=== PATIENT | female | born 1955 | race Two or more races ===

== ENCOUNTER 2024-06-21 10:15 | Day surgery (SDC) | payer MEDICARE, SELFPAY ==
--- NOTE | 2024-06-17 07:00 | EKG_ITS ---
[facility] Test Date: 2024-06-17 Pat Name: RACHAEL TOBIN Department: Room: - Gender: Female [employer] Relationship [employer]: PENG : 1955 Requested By: Avi Dunbar Order Number: [id number] Reading MD: Avi Dunbar Measurements Intervals [place] Rate: 59 P: -6 KS: 183 QRS: -28 QRSD: 118 T: -3 QT: 447 QTc: 445 Interpretive Statements SINUS BRADYCARDIA INCOMPLETE RIGHT BUNDLE BRANCH BLOCK SEPTAL MYOCARDIAL INFARCTION , PROBABLY OLD Compared to ECG 03/26/2019 14:01:21 Incomplete right bundle-branch block now present Myocardial infarct finding now present T-wave abnormality no longer present /store/S0/[id number].pdf
[2024-06-17 09:26] VITALS: BMI 27.4
[2024-06-17 10:00] LABS: Collection Type, Urine Clean Catch
[2024-06-17 10:54] LABS: Basophils # (Auto) 0.1 Thou/mm3 (0.0-0.2); Basophils % (Auto) 1 % (0-2.5); Eosinophils # (Auto) 0.2 Thou/mm3 (0.0-0.5); Eosinophils % (Auto) 3 % (0-10); Hematocrit 37.8 % (36.0-46.0); Hemoglobin 12.8 g/dL (12.0-16.0); Immature Granulocytes % (Auto) 0 % (0-0); Immature Granulocytes Auto 0.01 Thou/mm3 (0.00-0.00); Lymphocytes # (Auto) 2.1 Thou/mm3 (1.0-4.8); Lymphocytes % (Auto) 36 % (10-50); Mean Corpuscular HGB Conc 33.9 g/dl (31.0-37.0); Mean Corpuscular Volume 92 fL (80-100); Monocytes # (Auto) 0.4 Thou/mm3 (0.0-0.8); Monocytes % (Auto) 7 % (0-12); Neutrophils % (Auto) 53 % (37-80); Nucleated Red Blood Cell % 0 /100 WBC (0); Platelet Count 194 Thou/mm3 (140-440); Red Blood Count 4.13 Miln/mm3 (4.00-5.20); White Blood Count 5.7 Thou/mm3 (3.6-11.0)
[2024-06-17 10:56] LABS: Bacteria,Urine 4+; Bilirubin,Urine Negative (Negative); Blood,Urine Negative (Negative); Clarity,Urine Clear (Clear/Hazy); Color,Urine Lt-Yellow (Lt Yel-Yel); Glucose, Urine Negative (Negative); Ketones,Urine Negative (Negative); Leukocyte Esterase,Urine Positive (Negative); Nitrite,Urine Negative (Negative); PH,Urine 6.5 (5.0-7.0); Protein,Urine Negative (Neg - Trace); RBC,Urine 2 /hpf (0-3); Specific Gravity,Urine 1.008 (1.001-1.035); Squamous Epithelial Cell,Urine < 1 /hpf (0-5); Urobilinogen,Urine Negative mg/dL (0.0-1.0); WBC,Urine 19 /hpf (0-5)
[2024-06-17 11:03] LABS: Alanine Aminotransferase 13 U/L (10-49); Albumin, Serum 4.1 gm/dL (3.4-4.8); Albumin/Globulin Ratio 1.5 (1.2-2.2); Alkaline Phosphatase 56 U/L (46-116); Anion Gap 7 (7-16); Aspartate Amino Transferase 21 U/L (0-34); BUN/Creatinine Ratio 17 Ratio (12-20); Bilirubin,Total 1.5 mg/dL (0.3-1.2); Blood Urea Nitrogen 17 mg/dL (9-23); Calcium 9.7 mg/dL (8.3-10.6); Calcium (Corrected) 9.7 mg/dL (8.5-10.1); Chloride 108 mMol/L (98-107); Estimated Creatinine Clearance 50.4 mL/min (>60); Globulin 2.7 gm/dL (2.3-3.5); Glucose 94 mg/dL (74-106); Osmolality,Calculated 284 (275-295); Potassium 3.9 mMol/L (3.4-5.1); Sodium 142 mMol/L (136-145); Total Protein 6.8 gm/dL (5.7-8.2); eGFR > 60 See Note
--- NOTE | 2024-06-20 13:02 | ESHP_ITS ---
RE: RACHAEL TOBIN : 1955 DATE OF ADMISSION: 06/21/2024 HISTORY OF PRESENT ILLNESS: The patient is an elderly female with a history of leaky bladder. She urinates every time she sneezes, cough, laughs, and the urine comes out. She has nocturia 3 to 4 times. No urinary burning. No history of gross hematuria. PAST SURGICAL HISTORY: Included hernia operation, breast cyst surgery, cholecystectomy, and right shoulder operation. SOCIAL HISTORY: She has 4 children. ALLERGIES: NONE KNOWN. PAST MEDICAL HISTORY: She has history of hypertension and history of diabetes. She does not take any medication for diabetes. She takes some medicine for high blood pressure. PHYSICAL EXAMINATION: HEENT: Normal. NECK: Supple. LUNGS: Clear. CARDIOVASCULAR: Heart sounds are normal. ABDOMEN: Soft without any organomegaly. No guarding. No rigidity. EXTREMITIES: Normal. GENITOURINARY: Pelvic examination revealed grade 1 to 2 urethrocele. LABORATORY DATA: Cystoscopy was done, which revealed some cystitis cystica, gross urinary incontinence, positive Naldo test, low residual urine, normal capacity bladder, no uninhibited bladder contractions. PLAN: The patient was given Gemtesa 75 mg every day. The patient was given treatment options. She has decided to have surgery for her gross urinary stress incontinence. She is now scheduled to have cystoscopy, bladder neck suspension, urethrolysis with Lynx vaginal sling procedure. Planned procedure risks and complications have been discussed with the patient. The patient has understood them and agreed to proceed. DT: 12:32:20 TT: 13:01:00 Ref: [id number] - TID: [id number]
[2024-06-21] VITALS (18 sets, daily range): BP systolic 102–163; BP diastolic 54–80; PULSE 50–76; RESP 14–20; TEMP 36.2–36.4; O2SAT 95–100; BMI 27.3; BMI 28.3
--- NOTE | 2024-06-21 10:51 | CHAP ---
Patient expressed gratitude for prayer before their procedure.
[2024-06-21] MEDS: RINGERS LACTATED 1000 ML 1,000 ML 20 ML IV (11:08)
--- NOTE | 2024-06-21 13:05 | SUR.PHASEI ---
pt received from OR in recovery bay 2. pt obtunded, breathing unlabored on oxymask 6l, oral airway in place. v/s stable. pt dressing to vagina/pubis area cdi. report received from Sonu WONG and Álvaro MENSAH.
[2024-06-21] MEDS: RINGERS LACTATED 1000 ML 1,000 ML 100 ML IV (15:10)
--- NOTE | 2024-06-21 20:29 | ESOP_ITS ---
RE: RACHAEL TOBIN : 1955 DATE OF OPERATION: 06/21/2024 PREOPERATIVE DIAGNOSIS: Gross urinary stress incontinence. POSTOPERATIVE DIAGNOSIS: Gross urinary stress incontinence. PROCEDURES PERFORMED: Bladder neck suspension, cystoscopy, and urethrolysis with Lynx vaginal sling procedure. ANESTHESIA: General. INDICATION: The patient is a 69-year-old female, who was referred to me with history of gross urinary stress incontinence. She loses urine on any kind of stress, sneezing, coughing or laughing. She was seen in the office. Cystoscopy was done, which revealed low residual urine, normal capacity bladder, no intravesical stones or tumors, gross urinary stress incontinence, positive Naldo's test, no uninhibited bladder contractions. The patient was given treatment options. She has decided to have surgery. She is now scheduled to have bladder neck suspension, cystoscopy, urethrolysis with Lynx vaginal sling procedure. Planned procedure, risks and complications have been discussed with the patient. The patient has understood them and agreed to proceed. DESCRIPTION OF PROCEDURE: After the patient was brought to the operating table under adequate general anesthesia in dorsal lithotomy position, parts were prepped and draped in the usual fashion. Abbott catheter was inserted into the bladder. Anterior vaginal wall submucosal injection was then carried out with local anesthetic. Vertical small incision was made about 0.5 cm long between mid urethra towards the bladder neck. Dissection was then carried out on either side underneath the vaginal mucosa for about 2 inches. Dissection was then carried out. Deep endopelvic fascia was entered and urethrolysis was carried out on both sides. Retropubic space was identified. At this point, in the suprapubic area, 2 transverse incisions were made about 3 inches from midline and the Lynx needles were passed from the suprapubic wound into the vaginal wound under finger control behind the pubic bone on both sides. At this point, cystoscopy was carried out. Abbott catheter from the bladder was removed. Cystoscopy revealed no evidence of injury to the bladder. There were no needles seen in the bladder and the bladder appeared to be intact. Abbott catheter was placed back into the bladder after removing the cystoscope. Lynx sling was attached to both needles and was pulled in place. Excessive sling and sleeve of the sling were removed. Excessive tension on the sling was avoided. Anterior vaginal wall incision was then closed with continuous sutures of 2-0 chromic catgut. Suprapubic wounds were closed with interrupted sutures of 3-0 chromic catgut. Sterile dressing was then applied. Kerlix soaked in Betadine solution was used as a vaginal packing. The patient tolerated the entire procedure well and left the room in good condition. Sponge count and needle count at the end of the procedure was found to be correct. Estimated blood loss was approximately 25 mL. DT: 13:23:06 TT: 20:28:00 Ref: [id number] - TID: [id number]
--- NOTE | 2024-06-21 21:00 | SUR.PHASEII ---
pt awake and alert, breathing unlabored on room air. v/s stable. pt dressing to vaginal area cdi. report called to Heber WONG. pt will be transferred to room at this time.
[2024-06-21] MEDS: AMOXICILLIN/POT CLAV 500 MG TABLET PO (21:48)
[2024-06-21] MEDS: KETOROLAC INJ 30 MG/ML VIAL IM (23:02)
[2024-06-22] VITALS: BP 126/66; PULSE 63; RESP 18; TEMP 36.7; O2SAT 96
[2024-06-22] MEDS: RINGERS LACTATED 1000 ML 1,000 ML 100 ML IV (02:21)
[2024-06-22 04:00] VITALS: BP 120/66; PULSE 60; RESP 18; TEMP 36.8; O2SAT 95
[2024-06-22 05:41] LABS: Basophils % (Auto) 0 % (0-2.5); Eosinophils % (Auto) 0 % (0-10); Hemoglobin 12.2 g/dL (12.0-16.0); Immature Granulocytes % (Auto) 0 % (0-0); Immature Granulocytes Auto 0.05 Thou/mm3 (0.00-0.00); Lymphocytes # (Auto) 0.9 Thou/mm3 (1.0-4.8); Lymphocytes % (Auto) 8 % (10-50); Mean Corpuscular HGB Conc 33.9 g/dl (31.0-37.0); Mean Corpuscular Hemoglobin 31.1 pg (25.0-35.0); Mean Corpuscular Volume 92 fL (80-100); Monocytes # (Auto) 0.5 Thou/mm3 (0.0-0.8); Monocytes % (Auto) 4 % (0-12); Neutrophils # (Auto) 10.7 Thou/mm3 (1.8-7.7); Neutrophils % (Auto) 87 % (37-80); Nucleated Red Blood Cell % 0 /100 WBC (0); Platelet Count 189 Thou/mm3 (140-440); RDW Standard Deviation 41.8 fL (36.4-46.3); Red Blood Count 3.92 Miln/mm3 (4.00-5.20); White Blood Count 12.3 Thou/mm3 (3.6-11.0)
--- NOTE | 2024-06-22 06:18 | PC.NURSE ---
Attempted to contact Dr. Dunbar to obtain an update on the patient?s code status. Unable to reach at this time. Will follow up with the day shift team.
[2024-06-22 06:41] LABS: Albumin, Serum 3.6 gm/dL (3.4-4.8); Anion Gap 7 (7-16); BUN/Creatinine Ratio 20 Ratio (12-20); Blood Urea Nitrogen 16 mg/dL (9-23); Calcium 8.6 mg/dL (8.3-10.6); Calcium (Corrected) 8.9 mg/dL (8.5-10.1); Carbon Dioxide 22.1 mMol/L (20.0-31.0); Chloride 112 mMol/L (98-107); Creatinine (Component) 0.8 mg/dL (0.6-1.3); Estimated Creatinine Clearance 61.6 mL/min (>60); Glucose 144 mg/dL (74-106); Osmolality,Calculated 285 (275-295); Phosphorous 2.4 mg/dL (2.4-5.1); Sodium 141 mMol/L (136-145); eGFR > 60 See Note
[2024-06-22 08:00] VITALS: BP 117/60; PULSE 65; RESP 16; TEMP 36.2; O2SAT 95
[2024-06-22 08:46] VITALS: BP 117/60; PULSE 65
[2024-06-22] MEDS: AMOXICILLIN/POT CLAV 500 MG TABLET PO (08:46)
[2024-06-22] MEDS: ASPIRIN EC 81 MG TABEC PO (08:46)
[2024-06-22] MEDS: LOSARTAN POTASSIUM 25 MG TABLET 50 MG PO (08:46)
[2024-06-22] MEDS: hydroCHLOROthiazide 12.5 MG CAPSULE PO (08:46)
[2024-06-22] MEDS: KETOROLAC INJ 30 MG/ML VIAL IM (08:49)
[2024-06-22 12:00] VITALS: BP 107/43; PULSE 68; RESP 18; TEMP 36.7; O2SAT 94
[2024-06-22] MEDS: ONDANSETRON INJ 2 MG/ML INJ 2 ML 4 MG IV (15:47)
[2024-06-22 16:00] VITALS: BP 132/67; PULSE 64; RESP 16; TEMP 36.3; O2SAT 97
== END 2024-06-22 18:51 | disposition home or self-care (01) ==
LOC: S2EX 12:58 → S3NX 21:23
PROVIDERS: Anesthesiology; PCP Physician Assistant; Referring Provider Surgery; Visit Provider Surgery
PROC: 0TJB8ZZ Inspection of Bladder, Via Natural or Artificial Opening Endoscopic (ICD-10-PCS; CPT 57288; principal; 2024-06-21 11:00)
DX: N39.3 Stress incontinence (female) (male) (principal); I10 Essential (primary) hypertension; E11.9 Type 2 diabetes mellitus without complications; Z90.49 Acquired absence of other specified parts of digestive tract; Z01.810 Encounter for preprocedural cardiovascular examination
CPT/HCPCS: 57288; 36415; 80053; 80069; 81001; 85025; 87077; 87086; 87186; 93005; A4217; A4649; C1771; J0131; J1100; J1885; J1956; J2405; J2704; J3010; J3490; J7120; A9270

== ENCOUNTER → 2025-03-25 | Outpatient (CLI) | payer MEDICARE, MEDICAID, SELFPAY ==
--- NOTE | 2025-03-25 16:00 | XR_ITS ---
Examination: Screening digital mammography, bilateral Computer aided detection 3-D breast Tomosynthesis, bilateral Date and time of exam: March 25, 2025, 1604 hours Compared to mammogram dated November 18, 2009 Indication: Screening, patient states right breast lump 2 years, history bilateral cyst removal Technique: Nonmagnified MLO, CC views of the breasts to been obtained, reconstructed from 3-D Tomosynthesis images. R2 computer aided detection program utilized for evaluation of suspicious masses and/or abnormal calcifications. 3-D Tomosynthesis images obtained. Findings: Scattered areas of fibroglandular density Skin lesion lower right breast No suspicious masses Impression: BI-RADS Category 0: Incomplete: Need additional imaging evaluation Recommend follow-up spot tomographic views of the patient's palpable right breast lump as well as bilateral breast sonography to complete the work-up
== END | disposition home or self-care (01) ==
LOC: CDIM 15:15
PROVIDERS: Referring Provider Family Medicine; Visit Provider Family Medicine
DX: Z12.31 Encounter for screening mammogram for malignant neoplasm of breast (principal); R92.8 Other abnormal and inconclusive findings on diagnostic imaging of breast
CPT/HCPCS: 77063; 77067